=== PATIENT | female | born 1955 | race Caucasian/White ===

== ENCOUNTER 2023-06-17 08:08 | Emergency (ER) | payer BC, MEDICARE, SELFPAY ==
[2023-06-17 08:40] VITALS: BP 140/90; PULSE 110; RESP 20; TEMP 37; O2SAT 100; BMI 31.2
--- NOTE | 2023-06-17 08:55 | ED_ITS ---
Discharge Plan Disposition Patient Disposition: Home, Self-Care Condition: Good Prescriptions Prescriptions: New azithromycin [Zithromax Z-Dileep] 250 mg tablet See Rx Instructions .ROUTE .COMPLEX 5 Days Qty: 6 0RF Rx Instructions: For 250 mg dose pack: take 500 mg today (day 1), then 250 mg for 4 days (days 2-5) methylprednisolone [Medrol (Dileep)] 4 mg tablets,dose pack See Rx Instructions .Route .COMPLEX 6 Days Qty: 21 0RF Rx Instructions: taper pack; guaifenesin [Mucinex] 600 mg tablet extended release 12hr 600 mg PO BID PRN (Reason: cough) Qty: 20 0RF Referrals Follow up/Referrals: Anibal Thomason DO [Primary Care Provider] - See instructions Activity Restrictions/Add. Instructions Additional Instructions/Restrictions: *Monitor Temp, Over the counter Motrin or Tylenol as directed/as needed Tylenol every 4 hours and Motrin every 6 hours (as long as your family doctor has told you that you can take it) for fever or pain. and straight to ER if unable to lower temp less than 101.0 after medication given *Warm salt water gargles may help to soothe the throat *Throat Lozenges? *Warm fluids like tea with honey may help to soothe the throat? *Sleep elevated *Humidifier/Vaporizer Your throat swab was sent for culture. Those results are typically sent to your primary care. Be sure to follow up in 2-3 days with your family doctor/primary care physician if no improvement so they can review those result and treat if necessary. If you don?t have a primary care doctor, I recommend you get one but in the mean time, you will have to return to a walk in clinic Follow up IMMEDIATELY for new or worsening symptoms or no Noticeable improvement over the next 48-72 hours. 911 for difficulty breathing or swallowing Clinical Impressions Clinical Impression: Sinusitis Qualifiers: Sinusitis location: unspecified location Chronicity: unspecified Qualified Code(s): J32.9 - Chronic sinusitis, unspecified Instructions Patient Instructions: DI for Sinusitis, Sinusitis Discharge ED Provider: [place] Sapp [facility] [place] General Stated complaint: cough, congestion, ear pain Mode of Arrival: Ambulatory Source of Information: Patient Limitations: No Limitations Time Seen by Provider: 06/17/23 08:55 Description of Symptoms (Recalled from Triage Doc. by RN): PATIENT C/O BODY ACHES, COUGH, AND SORE THROAT HEENT Symptoms (Recalled from RN notes): Yes Resp Symptoms (Recalled from RN notes): Yes Skin Symptoms (Recalled from RN notes): No MS Symptoms (Recalled from RN notes): No Functional Status (Recalled from RN notes): WNL History of Present Illness Provider Complaint: Patient states that she has been sick for several days States that she has been having sore throat, ear pain, sinus congestion/pressure and body aches, States that she took an at home COVID test and it was negative worried she may have flu or strep throat Related Data Previous Rx's Medication Instructions Recorded azithromycin 250 mg tablet See Rx Instructions PO .COMPLEX 5 06/17/23 (Zithromax Z-Dileep) days #6 tabs guaifenesin 600 mg tablet, 600 mg PO BID PRN cough #20 tabs 06/17/23 extended release 12 hr (Mucinex) methylprednisolone 4 mg tablets in See Rx Instructions .Route 06/17/23 a dose pack (Medrol (Dileep)) .COMPLEX 6 days #21 tabs Allergies Allergy/AdvReac Type Severity Reaction Status Date / Time Penicillins Allergy Verified 06/17/23 08:55 Worker's Comp Is this a Worker's Comp case?: No [facility] Disclaimer: The information contained in this section may have been updated after the patient was seen, as this information can be updated by other users. Social History Smoking Status: Unknown if ever smoked alcohol intake: never current occupational status: retired Travel in the last 8 weeks: None ROS Obtained: Yes All systems reviewed & no additional complaints except as documented and Yes Systems reviewed as appropriate & no additional complaints except as documented Constitutional Constitutional: Reports system reviewed and no additional complaints, except as documented, Reports as per HPI, Reports body ache and Reports chills ENT Ears, Nose, Mouth, and Throat: Reports system reviewed and no additional complaints, except as documented, Reports as per HPI, Reports otalgia, Reports nasal congestion, Reports sinus pressure and Reports sore throat Cardiovascular Cardiovascular: Reports system reviewed and no additional complaints, except as documented and Reports as per HPI Respiratory Respiratory: Reports system reviewed and no additional complaints, except as documented, Reports as per HPI and Reports cough (dry) Gastrointestinal Gastrointestingal: Reports system reviewed and no additional complaints, except as documented and as per HPI Musculoskeletal Musculoskeletal: Reports system reviewed and no additional complaints, except as documented and Reports as per HPI Physical Exam General General appearance: alert and in no apparent distress ENT ENT exam: Present mucous membranes moist Respiratory Respiratory exam: Present normal lung sounds bilaterally; Absent respiratory distress or wheezes Cardiovascular Cardiovascular exam: Present regular rate, normal rhythm and normal heart sounds Abdominal Exam Abdominal exam: Present soft and normal bowel sounds; Absent distention or tenderness Neurological Exam Neurological exam: Present alert, oriented X3 and normal gait Medical Decision Making Escobar Inquiry Pt receiving controlled substance: No Ecsobar was queried for this patient: No Vital Signs: 06/17/23 08:40 Temperature 98.6 F Temperature Source Oral Pulse Rate [Left Brachial] 110 H Respiratory Rate 20 Blood Pressure [Left Arm] 140/90 Blood Pressure Mean [Left Arm] 106 Blood Pressure Source [Left Arm] Automatic Cuff Blood Pressure Position [Left Arm] Sitting 02 Sat by Pulse Oximetry 100 Oxygen Delivery Method Room Air Lab Data Lab results reviewed: Yes I reviewed the patient's lab results.
[2023-06-17 09:15] LABS: UTC Influenza A Antigen Negative (Negative); UTC Influenza B Antigen Negative (Negative)
[2023-06-17 09:17] LABS: UTC Strep Screen (Rapid) Negative (Negative)
[2023-06-17 09:27] VITALS: BP 140/90; PULSE 110; RESP 20; TEMP 37; O2SAT 100
== END 2023-06-17 09:30 | disposition home or self-care (01) ==
PROVIDERS: Emergency Provider Nurse Practitioner; PCP Family Medicine
DX: J01.90 Acute sinusitis, unspecified (principal); R05.9 Cough, unspecified; H92.03 Otalgia, bilateral; R09.81 Nasal congestion; R07.0 Pain in throat; M79.18 Myalgia, other site
CPT/HCPCS: 87804; 87880; 99204; 99212; G0463

== ENCOUNTER 2023-06-21 11:41 | Emergency (ER) | payer BC, MEDICARE, SELFPAY ==
[2023-06-21 11:55] VITALS: BP 130/89; PULSE 88; RESP 18; TEMP 36.8; O2SAT 98; BMI 26.4
--- NOTE | 2023-06-21 12:30 | EXP.UTC ---
Discharge Plan Disposition Patient Disposition: Home, Self-Care Condition: Good Prescriptions Prescriptions: New benzonatate 100 mg capsule 100 mg PO TID PRN (Reason: cough) Qty: 30 0RF cefdinir 300 mg capsule 300 mg PO BID Qty: 20 0RF Referrals Follow up/Referrals: Anibal Thomason DO [Primary Care Provider] - See instructions Activity Restrictions/Add. Instructions Additional Instructions/Restrictions: Follow up with your family Doctor if no improvement or any worsening of symptoms Take medication as prescribed Return if needed Clinical Impressions Clinical Impression: Bronchitis Sinusitis Qualifiers: Sinusitis location: unspecified location Chronicity: unspecified Qualified Code(s): J32.9 - Chronic sinusitis, unspecified Instructions Patient Instructions: DI for Sinusitis, Sinusitis, Cough Discharge ED Provider: Rachel Sapp [facility] General Stated complaint: SOA and congestion and back pain Mode of Arrival: Ambulatory Source of Information: Patient Limitations: No Limitations Time Seen by Provider: 06/21/23 12:30 Description of Symptoms (Recalled from Triage Doc. by RN): PATIENT C/O DRY COUGH AND PAIN IN BACK X 1 WEEK HEENT Symptoms (Recalled from RN notes): No Resp Symptoms (Recalled from RN notes): Yes Skin Symptoms (Recalled from RN notes): No MS Symptoms (Recalled from RN notes): Yes Functional Status (Recalled from RN notes): WNL History of Present Illness Provider Complaint: Patient states that she was seen and treated on Saturday for sinusitis States that sometimes she gets these sinus infections that is hard to clear up and feels like that is what is going on States that she has finished her medication but still having pain/pressure in her sinuses and drainage in the back of her throat that is making her have a dry cough and her back is sore from coughing so much States sometimes it takes a couple rounds of antibiotics to clear it up but she wanted to get something else before it moved into her lungs Related Data Previous Rx's Medication Instructions Recorded benzonatate 100 mg capsule 100 mg PO TID PRN cough #30 caps 06/21/23 cefdinir 300 mg capsule 300 mg PO BID #20 caps 06/21/23 Allergies Allergy/AdvReac Type Severity Reaction Status Date / Time Penicillins Allergy Verified 06/17/23 08:55 Worker's Comp Is this a Worker's Comp case?: No [facility] Disclaimer: The information contained in this section may have been updated after the patient was seen, as this information can be updated by other users. Social History (Updated 06/17/23 @ 09:24 by Rachel Sapp APRN) Smoking Status: Unknown if ever smoked alcohol intake: never current occupational status: retired Travel in the last 8 weeks: None ROS Obtained: Yes All systems reviewed & no additional complaints except as documented and Yes Systems reviewed as appropriate & no additional complaints except as documented Constitutional Constitutional: Reports system reviewed and no additional complaints, except as documented and Reports as per HPI ENT Ears, Nose, Mouth, and Throat: Reports system reviewed and no additional complaints, except as documented, Reports as per HPI, Reports sinus pain and Reports sinus pressure Cardiovascular Cardiovascular: Reports system reviewed and no additional complaints, except as documented and Reports as per HPI Respiratory Respiratory: Reports system reviewed and no additional complaints, except as documented, Reports as per HPI, Denies shortness of breath, Reports cough and Reports pain with cough (at times) Gastrointestinal Gastrointestingal: Reports system reviewed and no additional complaints, except as documented and as per HPI Physical Exam General General appearance: alert and in no apparent distress ENT ENT exam: Present mucous membranes moist Expanded ENT Exam Nose exam: Present sinus tenderness Throat exam: Present other (mild pharyngeal erythema noted with PND) Respiratory Respiratory exam: Present normal lung sounds bilaterally; Absent respiratory distress or wheezes Cardiovascular Cardiovascular exam: Present regular rate, normal rhythm and normal heart sounds Neurological Exam Neurological exam: Present alert, oriented X3 and normal gait Medical Decision Making Escobar Inquiry Pt receiving controlled substance: No Escobar was queried for this patient: No Vital Signs: 06/21/23 11:55 Temperature 98.3 F Temperature Source Oral Pulse Rate [Right Brachial] 88 Respiratory Rate 18 Blood Pressure [Right Arm] 130/89 Blood Pressure Mean [Right Arm] 102 Blood Pressure Source [Right Arm] Automatic Cuff Blood Pressure Position [Right Arm] Sitting 02 Sat by Pulse Oximetry 98 Oxygen Delivery Method Room Air Medical Decision Narrative: Recommended CXR patient declined states that she just wants a differnt antibiotic for her sinuses sometimes zpacks dont work Patient state that she is allergic to PCN but has taken Cefdnir without complications or reactions
[2023-06-21 12:41] VITALS: BP 130/89; PULSE 88; RESP 18; TEMP 36.8; O2SAT 98
== END 2023-06-21 12:58 | disposition home or self-care (01) ==
PROVIDERS: Emergency Provider Nurse Practitioner; PCP Family Medicine
DX: J20.9 Acute bronchitis, unspecified (principal); J01.90 Acute sinusitis, unspecified; R09.81 Nasal congestion; R09.82 Postnasal drip; R05.9 Cough, unspecified; M54.6 Pain in thoracic spine
CPT/HCPCS: 99212; 99214; G0463

== ENCOUNTER 2024-07-14 09:48 | Outpatient (CLI) | payer MEDICARE, SELFPAY ==
--- NOTE | 2024-07-14 | XR_ITS ---
FINAL REPORT TECHNIQUE: Lumbar spine 5 views CLINICAL HISTORY: LUMBAGO W/ SCIATICA RT-SIDE COMPARISON: None FINDINGS: LUMBAR SPINE: AP, lateral, and oblique views of the lumbar spine were obtained. There is no acute fracture. There is severe multilevel degenerative disc disease present, particularly severe at the L2-3 and L3-4 levels. Mild S-shaped scoliosis is present. No acute bony abnormality is identified. Vertebral body height is preserved. . No acute paraspinal abnormality is identified. IMPRESSION: Severe multilevel degenerative change particularly in the upper lumbar spine, as described. No acute osseous abnormalities lumbar spine. Reviewed, Interpreted and Dictated by Adrian Anderson MD Transcribed by Lorena Rosa Authenticated and [facility]
== END 2024-07-14 23:59 | disposition home or self-care (01) ==
PROVIDERS: PCP Family Medicine; Visit Provider Family Medicine
DX: M54.41 Lumbago with sciatica, right side (principal)
CPT/HCPCS: 72110

== ENCOUNTER 2024-10-02 19:42 | Emergency (ER) | payer MEDICARE, SELFPAY ==
[2024-10-02 20:19] VITALS: BP 147/79; PULSE 80; RESP 20; TEMP 36.8; O2SAT 99; BMI 25.7
--- NOTE | 2024-10-02 20:20 | ED_ITS ---
<Statement entered by Daylin Vincent DO - 10/02/24 23:15> I was consulted by the HIRA, and we discussed the complexity of the problems being addressed. I approved the treatment and management plan for this patient's care in the emergency department, thus performing a substantive portion of the medical decision making. Daylin Vincent DO Discharge Plan Disposition Patient Disposition: Home, Self-Care Chief Complaint: Skin/Abscess/Foreign Body Prescriptions Prescriptions: No Action benzonatate 100 mg capsule 100 mg PO TID PRN (Reason: cough) Qty: 30 0RF cefdinir 300 mg capsule 300 mg PO BID Qty: 20 0RF Referrals Follow up/Referrals: Anibal Thomason DO [Primary Care Provider] - See instructions Activity Restrictions/Add. Instructions Additional Instructions/Restrictions: Please return to the emergency department for any worsening signs or symptoms, please return to emergency department or PCPs office for suture removal in 7 to 10 days. Monitor for any signs of infection around the wound, utilize Vaseline, keep the wound area clean and dry. Clinical Impressions Clinical Impression: Laceration of finger of right hand Instructions Patient Instructions: DI for Laceration Repair, DI for Laceration Repair -- Simple Print Language Print Language: Azeri Discharge ED Provider: Daylin Vincent General Adult HPI General Chief complaint: Skin/Abscess/Foreign Body Stated complaint: AO 10/02/24 1400 laceration right hand Time Seen by Provider: 10/02/24 20:08 Mode of Arrival: Ambulatory Source of Information: Patient Limitations: No Limitations History of Present Illness HPI narrative: 69-year-old female presents to the emergency department with a 1 to 2 cm laceration on the palmar aspect of her right hand, patient moves extremity to command, no numbness or tingling, patient acquired this laceration when she was working with some metal fencing , when she states that her hand caught against the fencing . She denies any fever chills chest pain shortness of breath nausea vomiting constipation diarrhea, no urinary type symptomatology, patient has other past medical history consistent with esophageal/throat cancer status post chemoradiation in remission, as well as hypertension, patient is a non-smoker, denies any alcohol or drug use, patient believes her tetanus prophylaxis is up-to-date, but is quite unsure, she already irrigated the wound copiously after the incident and already placed some Neosporin ointment on the affected area, initial triage vitals are grossly unremarkable. Onset (ago): hour(s) Related Data Previous Rx's ?Medication ?Instructions ?Recorded benzonatate 100 mg capsule 100 mg PO TID PRN cough #30 caps 06/21/23 cefdinir 300 mg capsule 300 mg PO BID #20 caps 06/21/23 Allergies Allergy/AdvReac Type Severity Reaction Status Date / Time Penicillins Allergy Verified 06/17/23 08:55 [facility] Disclaimer: The information contained in this section may have been updated after the patient was seen, as this information can be updated by other users. Social History (Updated 06/17/23 @ 09:24 by Rachel Sapp APRN) Smoking Status: Never smoker alcohol intake: never current occupational status: retired Travel in the last 8 weeks?: None Have you lived/traveled outside [place] in past 30 days?: No Contact w/someone who lives/traveled outside [place] past 30 days?: No Exposure to someone with infectious disease in past 14 days?: No Do you have a fever (greater than 100.4 F or 38 C)?: No Have you tested positive for COVID-19?: No Exposed to someone with COVID-19 in past 14 days?: No Do you have a sore throat?: No Do you have a cough?: No Do you have any weakness?: No Do you have any diarrhea?: No Are you experiencing any unusual bleeding?: No Do you have any muscle aches/pain?: No Do you have any abdominal pain?: No Are you experiencing loss of taste or smell?: No ROS Obtained: Yes All systems reviewed & no additional complaints except as documented Physical Exam General General appearance: alert and in no apparent distress Head Head exam: atraumatic and normocephalic Eye Eye exam: Present PERRL and EOMI ENT ENT exam: Present mucous membranes moist Neck Neck exam: Present normal inspection Chest Chest inspection: Present normal inspection and symmetric chest wall rise Respiratory Respiratory exam: Present normal lung sounds bilaterally; Absent respiratory distress Cardiovascular Cardiovascular exam: Present regular rate and normal rhythm Abdominal Exam Abdominal exam: Present soft; Absent tenderness Extremities Exam Extremities exam: Present normal inspection Neurological Exam Neurological exam: Present alert and oriented X3 Psychiatric Psychiatric exam: Present normal affect Skin Skin exam: Present warm, dry and other (Obvious irregular laceration that is around 1 to 2 cm, on the patient's palmar aspect of her right hand, patient otherwise neurovascular intact, there is some muscle belly/subcutaneous tissues protruding outside of the wound, but bleeding is controlled at this time.) Medical Decision Making Medical Records Medical records reviewed: Yes I reviewed the patient's medical records. Screening: Per USPSTF and CDC recommendations, given the prevalence of disease in our region, it is our hospital?s policy to screen for HIV and viral Hepatitis for all patients aged 18 and over and those with ongoing risk factors. Escobar Inquiry Pt receiving controlled substance: No Escobar was queried for this patient: No Vital Signs: 10/02/24 20:19 Temperature 98.3 F Temperature Source Oral Pulse Rate [Right] 80 Respiratory Rate 20 Blood Pressure [Right Arm] 147/79 H Blood Pressure Mean [Right Arm] 101 02 Sat by Pulse Oximetry 99 Oxygen Delivery Method Room Air Orders (Tests/Meds): ED MEDICATIONS Discontinued Medications Generic Name Dose Route Start Last Admin Trade Name Freq PRN Reason Stop Dose Admin Lidocaine HCl 15 ml 10/02/24 20:34 10/02/24 21:12 Lidocaine 1% 20ml Mdv SUBCUT 10/02/24 20:35 15 ml ONCE ONE Administration Tetanus/Reduced Diphtheria/Acell Pertussis 0.5 ml 10/02/24 20:30 10/02/24 20:45 Tet/Diphth/Pert-Adult 0.5ml Syringe IM 10/02/24 20:31 0.5 ml .ONCE ONE Administration Medical Decision Narrative: 69-year-old female presents emergency department with a right hand palmar laceration, differential diagnose include but limited, laceration, abrasion, puncture wound among others. I discussed patient case with attending physician Dr. Vincent Copious irrigation was used as well as Hibiclens to clean the wound, will update patient's tetanus due to being unsure when last tetanus prophylaxis was as well as the fence being dirty according to the patient at the bedside See procedure note for full details, I utilized approximately 4 to 5 mL of 1% lidocaine with local analgesia around the wound margins/edges, irregular flap/border of the wound, due to ripping tearing nature, was sutured with 5-0 sutures x 3 wound margins were revitalize, flap still present over the wound, but wound closed, patient tolerated procedure well, Vaseline and a dressing of the wound was applied via nursing staff prior to discharge. Patient was given strict ED return precautions, will return to emergency department or PCPs office in 7 to 10 days to remove sutures. Patient voiced understanding of the current treatment plan/discharge plan. Procedures Laceration Laceration 1: Site: hand Size (cm): 2 Description: flap and irregular Depth: involves subcutaneous layer and [id number] Local Anesthetic: lidocaine 1% Amount of anesthesia used (mL): 4 Pre-repair: wound explored and irrigated extensively Skin layer closed with: nylon Size (cm): 5-0 Number of sutures: 3 Technique: simple, interrupted Technique: simple interrupted Critical Care Critical Care Time Critical Care Time: No
[2024-10-02] MEDS: TET/DIPHTH/PERT-ADULT 0.5ML SYRINGE 0.5 ML IM (20:45)
[2024-10-02] MEDS: LIDOCAINE 1% 20ML MDV 15 ML SUBCUT (21:12)
[2024-10-02 21:25] VITALS: BP 147/79; PULSE 80; RESP 16; TEMP 36.8; O2SAT 99
== END 2024-10-02 21:26 | disposition home or self-care (01) ==
PROVIDERS: Emergency Provider Emergency Medicine; PCP Family Medicine
DX: S61.421A Laceration with foreign body of right hand, initial encounter (principal); W26.8XXA Contact with other sharp object(s), not elsewhere classified, initial encounter; Z23 Encounter for immunization
CPT/HCPCS: 12041; 90471; 90715; 99283; J2003